=== PATIENT | female | born 1945 | race Caucasian/White ===

== ENCOUNTER → 2017-02-08 | Outpatient (REF) ==
[~2017-02-08] MED LIST: ACIDOPHILIS PO; ALBUTEROL0.83 MG/ML IH; ALLEGRA 180MG180 MG PO; CLARITIN 1010 MG/TAB PO; COUMADIN 5MG5 MG/TAB; CRESTOR 10MG10 MG PO; ERY-TAB250 MG PO; FLOMAX 0.40.4 MG/CAP PO; GLUMETZA500 MG PO; IPRATROPIUM BROM3 M1 IH; LASIX 20MG TABL20 MG PO; LEVAQUIN 750MG750 M1 PO; LEVEMIR SQ; LIDODERM 5% PATC1 EA TP; LYRICA 100MG C100 M1 PO; NASONEX SPRAY17 GM NS; NEURONTIN600 MG/TAB PO; NOVLOG SQ; NOVOLOG 100U100 U/M1 SQ; PAXIL 20MG20 MG PO; PEPCID 20MG TAB20 MG PO; PREVACID 30MG30 M1 PO; REGLAN 10MG10 MG/TAB PO; ROXICODONE 55 MG/TAB PO; RT ADVAIR 228 DISKUS IH; RT ALBUTER2.5 MG/0.5 IH; SINEQUAN 1010 MG/CAP PO; SINGULAIR 110 MG/TAB PO; SLOW-MAG 6464 MG/TAB PO; SYNTHROID 0.0.025 MG PO; TRIAMCINOLONE A15 G3 TP; ZESTRIL 5MG5 MG PO; ZOFRAN 4MG T4 MG/TAB PO; [UNRECOGNIZED DRUG - CODE] TOP
== END ==
LOC: ZLAB.WCH 18:17
DX: Z01.89 Encounter for other specified special examinations (principal)

== ENCOUNTER → 2017-05-21 | Outpatient (REF) | LOC: ZLAB.WCH 14:36 | DX: Z01.89 Encounter for other specified special examinations (principal) ==

== ENCOUNTER → 2017-08-09 | Outpatient (REF) | LOC: ZLAB.WCH 18:08 | DX: Z01.89 Encounter for other specified special examinations (principal) ==

== ENCOUNTER → 2017-10-11 | Outpatient (REF) | LOC: ZLAB.WCH 18:14 | DX: Z01.89 Encounter for other specified special examinations (principal) ==

== ENCOUNTER → 2017-12-06 | Outpatient (REF) | LOC: ZLAB.WCH 16:05 | DX: Z01.89 Encounter for other specified special examinations (principal) ==

== ENCOUNTER → 2017-12-20 | Outpatient (REF) | LOC: ZLAB.WCH 16:01 | DX: Z01.89 Encounter for other specified special examinations (principal) ==

== ENCOUNTER → 2018-03-03 | Outpatient (REF) | LOC: ZLAB.WCH 19:10 | DX: Z01.89 Encounter for other specified special examinations (principal) ==

== ENCOUNTER → 2018-05-24 | Outpatient (REF) | LOC: ZLAB.WCH 08:35 | DX: Z01.89 Encounter for other specified special examinations (principal) ==

== ENCOUNTER → 2018-07-05 | Outpatient (REF) | LOC: ZLAB.WCH 08:31 | DX: Z01.89 Encounter for other specified special examinations (principal) ==

== ENCOUNTER → 2018-08-25 | Outpatient (REF) | LOC: ZLAB.WCH 19:07 | DX: Z01.89 Encounter for other specified special examinations (principal) ==

== ENCOUNTER → 2018-11-24 | Outpatient (REF) | LOC: ZLAB.WCH 17:25 | DX: Z01.89 Encounter for other specified special examinations (principal) ==

== ENCOUNTER 2022-06-22 12:25 | Inpatient (IN) | payer MEDICARE, OTHER ==
[~2022-06-22] VITALS: Ht 154.9 cm; Wt 96.5 kg
[2022-06-22 14:00] VITALS: BP 175/48; PULSE 72; TEMP 98
[2022-06-22 14:47] VITALS: BP 166/53; PULSE 71; TEMP 97.5
[2022-06-22] MEDS ORDERED: CYANOCOBAL1000 MCG/M IM (16:02)
[2022-06-22] MEDS ORDERED: ASPIRIN E.C. 8181 MG PO (16:04)
[2022-06-22] MEDS ORDERED: MIRAPEX 0.0.125 MG/T PO (16:09)
[2022-06-22] MEDS ORDERED: PROTONIX20 MG PO (16:10)
[2022-06-22] MEDS ORDERED: TYLENOL 325MG325 MG PO (16:10)
[2022-06-22] MEDS ORDERED: CRESTOR40 MG PO (16:11)
[2022-06-22] MEDS ORDERED: PROZAC 20MG20 MG PO (16:11)
[2022-06-22] MEDS ORDERED: COREG12.5 MG PO (16:11)
[2022-06-22] MEDS ORDERED: COZAAR 25MG25 MG/TAB PO (16:12)
[2022-06-22] MEDS ORDERED: NEURONTIN100 MG/CAP PO (16:12)
[2022-06-22] MEDS ORDERED: IPRATROPIUM BROM3 M1 IH (16:12)
[2022-06-22] MEDS ORDERED: HUMALOG100 U/ML SQ (16:14)
[2022-06-22] MEDS ORDERED: EUTHYROX25 MCG PO (16:14)
[2022-06-22] MEDS ORDERED: LEVEMIR SQ (16:18)
[2022-06-22] MEDS ORDERED: VITAMIN D250 MCG PO (16:22)
[2022-06-22] MEDS ORDERED: DEMADEX5 MG PO (16:23)
[2022-06-22] MEDS ORDERED: FERROUS SU325 MG/TAB PO (16:23)
[2022-06-22] MEDS ORDERED: PREDNISONE1 MG PO (16:24)
[2022-06-22] MEDS ORDERED: ZAROXOLYN5 MG PO (16:24)
[2022-06-22] MEDS ORDERED: BENADRYL50 MG PO (16:24)
[2022-06-22 19:20] VITALS: BP 151/55; PULSE 82; TEMP 98.2
[2022-06-22 23:45] VITALS: BP 158/51; PULSE 85; TEMP 98.5
[2022-06-23 03:10] VITALS: BP 176/57; PULSE 87; TEMP 98.8
[2022-06-23 06:20] LABS: BASO % 0.1 % (0.0-2.0); EOS % 0.1 % (0.0-4.0); GRAN % 84.5 % (42.2-75.2); HEMOGLOBIN 10.3 g/dl (12.5-16.0); LYMPH # 1.2 K/mm3 (1.2-3.4); LYMPH % 8.2 % (20.0-51.0); MEAN CELL VOLUME 86 fl (80.0-100.0); MEAN CORPUSCULAR HEMOGLOBIN 28 pg (27-31); MEAN CORPUSCULAR HGB CONC 32 g/dl (33.0-37.0); MONO # 0.9 K/mm3 (0.1-0.6); MONO % 6.5 % (1.7-9.3); PLATELET COUNT 242 K/mm3 (130-400); RED BLOOD COUNT 3.69 M/mm3 (4.10-5.30); REDCELL DISTRIBUTION WIDTH-CV 13.2 % (11.5-14.5)
[2022-06-23 06:22] LABS: HEMATOCRIT 31.9 % (37.0-47.0)
[2022-06-23 06:40] LABS: ALBUMIN 2.4 gm/dL (3.4-4.8); BILIRUBIN,TOTAL 0.4 mg/dL (0.2-1.2); CALCIUM 8.3 mg/dL (8.4-10.2); CREATININE, serum 1.14 mg/dL (0.57-1.11); POTASSIUM 3.7 mmol/L (3.5-4.5); TOTAL PROTEIN 5.7 gm/dL (6.2-8.1)
[2022-06-23 07:19] VITALS: BP 169/62; PULSE 94; TEMP 98.8
[2022-06-23 12:04] VITALS: BP 145/56; PULSE 85; TEMP 98.4
[2022-06-23 12:19] LABS: CALCIUM 7.8 mg/dL (8.4-10.2); CREATININE, serum 1.17 mg/dL (0.57-1.11); POTASSIUM 4.1 mmol/L (3.5-4.5)
[2022-06-23 15:26] VITALS: BP 164/58; PULSE 85; TEMP 98
[2022-06-23 19:49] VITALS: BP 142/64; PULSE 89; TEMP 97.6
[2022-06-23 23:54] VITALS: BP 154/59; PULSE 86; TEMP 97.9
[2022-06-24 03:40] VITALS: BP 159/67; PULSE 103; TEMP 98
[2022-06-24 06:37] LABS: BASO % 0.2 % (0.0-2.0); EOS % 0.1 % (0.0-4.0); GRAN # 15.3 K/mm3 (1.4-6.5); GRAN % 88.1 % (42.2-75.2); LYMPH # 1.1 K/mm3 (1.2-3.4); LYMPH % 6.2 % (20.0-51.0); MEAN CORPUSCULAR HGB CONC 31 g/dl (33.0-37.0); MEAN PLATELET VOLUME 12.7 fl (7.4-10.4); MONO # 0.8 K/mm3 (0.1-0.6); MONO % 4.8 % (1.7-9.3); PLATELET COUNT 214 K/mm3 (130-400); RED BLOOD COUNT 3.46 M/mm3 (4.10-5.30); REDCELL DISTRIBUTION WIDTH-CV 13.8 % (11.5-14.5)
[2022-06-24 06:40] LABS: HEMATOCRIT 31.4 % (37.0-47.0); HEMOGLOBIN 9.7 g/dl (12.5-16.0); MEAN CELL VOLUME 91 fl (80.0-100.0); MEAN CORPUSCULAR HEMOGLOBIN 28 pg (27-31)
[2022-06-24 06:53] LABS: CALCIUM 7.7 mg/dL (8.4-10.2); CREATININE, serum 1.14 mg/dL (0.57-1.11)
[2022-06-24 07:56] VITALS: BP 158/65; PULSE 90; TEMP 98.3
[2022-06-24 11:14] VITALS: BP 156/66; PULSE 91; TEMP 98
[2022-06-24 15:37] VITALS: BP 182/70; PULSE 86; TEMP 99.8
[2022-06-24 19:59] VITALS: BP 165/62; PULSE 84; TEMP 98
[2022-06-25] VITALS (7 sets, daily range): BP systolic 124–170; BP diastolic 39–75; PULSE 67–91; TEMP 97.8–99.3
[2022-06-25 06:50] LABS: CALCIUM 7.9 mg/dL (8.4-10.2); CREATININE, serum 1.01 mg/dL (0.57-1.11); MAGNESIUM 1.8 mg/dL (1.6-2.6); POTASSIUM 4.3 mmol/L (3.5-4.5)
[2022-06-25 07:40] LABS: BASO % 0.1 % (0.0-2.0); EOS % 0.1 % (0.0-4.0); GRAN # 11.8 K/mm3 (1.4-6.5); GRAN % 82.4 % (42.2-75.2); LYMPH # 1.6 K/mm3 (1.2-3.4); MEAN CELL VOLUME 88 fl (80.0-100.0); MEAN CORPUSCULAR HGB CONC 31 g/dl (33.0-37.0); MEAN PLATELET VOLUME 11.5 fl (7.4-10.4); MONO # 0.8 K/mm3 (0.1-0.6); MONO % 5.9 % (1.7-9.3); PLATELET COUNT 232 K/mm3 (130-400); RED BLOOD COUNT 3.59 M/mm3 (4.10-5.30); REDCELL DISTRIBUTION WIDTH-CV 13.5 % (11.5-14.5)
[2022-06-25 07:42] LABS: HEMATOCRIT 31.7 % (37.0-47.0); HEMOGLOBIN 9.9 g/dl (12.5-16.0); MEAN CORPUSCULAR HEMOGLOBIN 28 pg (27-31)
[2022-06-26] VITALS (7 sets, daily range): BP systolic 82–154; BP diastolic 50–79; PULSE 78–89; TEMP 97.4–98.3
[2022-06-26 08:15] LABS: BASO % 0.2 % (0.0-2.0); GRAN # 9.9 K/mm3 (1.4-6.5); GRAN % 82.1 % (42.2-75.2); LYMPH # 1.4 K/mm3 (1.2-3.4); LYMPH % 11.8 % (20.0-51.0); MEAN CELL VOLUME 92 fl (80.0-100.0); MEAN CORPUSCULAR HGB CONC 31 g/dl (33.0-37.0); MEAN PLATELET VOLUME 12.3 fl (7.4-10.4); MONO # 0.6 K/mm3 (0.1-0.6); MONO % 5.2 % (1.7-9.3); PLATELET COUNT 174 K/mm3 (130-400); RED BLOOD COUNT 3.42 M/mm3 (4.10-5.30); REDCELL DISTRIBUTION WIDTH-CV 13.9 % (11.5-14.5)
[2022-06-26 08:21] LABS: CALCIUM 7.5 mg/dL (8.4-10.2); CREATININE, serum 1.23 mg/dL (0.57-1.11); POTASSIUM 5.4 mmol/L (3.5-4.5)
[2022-06-26 08:33] LABS: HEMATOCRIT 31.5 % (37.0-47.0); HEMOGLOBIN 9.6 g/dl (12.5-16.0); MEAN CORPUSCULAR HEMOGLOBIN 28 pg (27-31)
[2022-06-27 00:09] VITALS: BP 137/45; PULSE 86; TEMP 98.2
[2022-06-27 03:43] VITALS: BP 151/42; PULSE 80; TEMP 97.9
[2022-06-27 08:00] VITALS: BP 152/112; PULSE 84; TEMP 98.2
[2022-06-27 11:55] VITALS: BP 152/43; PULSE 85; TEMP 97.6
== END 2022-06-29 19:30 | disposition expired | DRG 177 ==
LOC: MEDICAL 12:25
PROVIDERS: Internal Medicine; Physician Assistant; ADMIT Student in an Organized Health Care Education/Training Program
DX: J69.0 Pneumonitis due to inhalation of food and vomit (principal); E43 Unspecified severe protein-calorie malnutrition; J96.01 Acute respiratory failure with hypoxia; G92.8 Other toxic encephalopathy; E87.3 Alkalosis; K62.6 Ulcer of anus and rectum; Z51.5 Encounter for palliative care; Z66 Do not resuscitate; E87.0 Hyperosmolality and hypernatremia; I13.0 Hypertensive heart and chronic kidney disease with heart failure and stage 1 through stage 4 chronic kidney disease, or unspecified chronic kidney disease; E87.20 Acidosis, unspecified; K21.9 Gastro-esophageal reflux disease without esophagitis; J44.9 Chronic obstructive pulmonary disease, unspecified; E78.5 Hyperlipidemia, unspecified; F32.A Depression, unspecified; E11.40 Type 2 diabetes mellitus with diabetic neuropathy, unspecified; E03.9 Hypothyroidism, unspecified; N18.9 Chronic kidney disease, unspecified; E87.6 Hypokalemia; E11.649 Type 2 diabetes mellitus with hypoglycemia without coma; J02.9 Acute pharyngitis, unspecified; D64.9 Anemia, unspecified; B95.8 Unspecified staphylococcus as the cause of diseases classified elsewhere; K14.0 Glossitis; Z20.822 Contact with and (suspected) exposure to COVID-19; D72.829 Elevated white blood cell count, unspecified; E11.22 Type 2 diabetes mellitus with diabetic chronic kidney disease; E11.65 Type 2 diabetes mellitus with hyperglycemia; E87.5 Hyperkalemia; Z79.4 Long term (current) use of insulin; Z86.711 Personal history of pulmonary embolism; Z90.710 Acquired absence of both cervix and uterus; Z90.49 Acquired absence of other specified parts of digestive tract; Z79.890 Hormone replacement therapy; Z91.041 Radiographic dye allergy status; Z88.0 Allergy status to penicillin; Z91.013 Allergy to seafood; Z23 Encounter for immunization
CPT/HCPCS: A9270; A9284; J0692; J1815; J2060; J2270; J2405; J3370; J3480; J7042; J7050; J7070; J7512